=== PATIENT | female | born 1955 | race Hispanic/Latino ===

== ENCOUNTER → 2022-04-23 | Outpatient (CLI) | payer OTHER | END | disposition home or self-care (01) | LOC: SHCH 13:14 | PROVIDERS: ATTEND Internal Medicine | DX: I07.1 Rheumatic tricuspid insufficiency (principal); R94.31 Abnormal electrocardiogram [ECG] [EKG] | CPT/HCPCS: 93306 ==

== ENCOUNTER → 2022-04-29 | Outpatient (CLI) | payer OTHER ==
[~2022-04-29] MED LIST: REGADENOSON 0.4 MG/5 ML PF SYG IVP ONE
== END | disposition home or self-care (01) ==
LOC: SHCH 08:55 → EDUNIT# 09:20
PROVIDERS: ATTEND Internal Medicine
DX: R07.9 Chest pain, unspecified (principal); R94.31 Abnormal electrocardiogram [ECG] [EKG]
CPT/HCPCS: 78452; 96374; 93017; J2785; A9500 ×2

== ENCOUNTER → 2022-08-02 | Outpatient (CLI) | payer OTHER ==
[~2022-08-02] MED LIST changes: +IOHEXOL-350 75 ML VIAL IV ONE; -REGADENOSON 0.4 MG/5 ML PF SYG IVP ONE
== END | disposition home or self-care (01) ==
LOC: RAH 10:32
PROVIDERS: ATTEND Family Medicine
DX: K44.9 Diaphragmatic hernia without obstruction or gangrene (principal); Q60.0 Renal agenesis, unilateral; R93.429 Abnormal radiologic findings on diagnostic imaging of unspecified kidney; M47.815 Spondylosis without myelopathy or radiculopathy, thoracolumbar region; I70.0 Atherosclerosis of aorta
CPT/HCPCS: 74170; Q9967

== ENCOUNTER → 2024-05-17 | Outpatient (CLI) | payer OTHER ==
--- NOTE | 2024-05-17 11:53 | HMCIMG ---
Exam Type: CHEST 2VWS Clinical Information: Atherosclerosis of aorta Comparison: None Findings: The lungs are clear of infiltrates. The heart is normal in size. The bony and soft tissue structures of the chest are unremarkable. Impression: Clear lungs.
== END | disposition home or self-care (01) ==
LOC: RAH 10:25
PROVIDERS: ATTEND Family Medicine
DX: I70.0 Atherosclerosis of aorta (principal)
CPT/HCPCS: 71046

== ENCOUNTER → 2024-09-13 | Outpatient (CLI) | payer OTHER ==
--- NOTE | 2024-09-14 10:25 | HMCIMG ---
EXAM: CT Cardiac calcium scoring. CLINICAL HISTORY: Screening. TECHNIQUE: Thin collimated axial CT cardiac images were obtained. CT scan is done according to ALARA (As Low As Reasonably Achievable). CONTRAST: None. COMPARISON: None provided. FINDINGS: Calcium Score: VESSEL Number of lesions Volume mm3 Equi. Mass/mg Calcium score LM 4 15.4 - 21.6 LAD 3 34.2 - 45.9 LCX 1 5.9 - 5.2 RCA 2 5.6 - 5.7 Total 10 61.1 - 78.4 IMPRESSION: The total calcium score is 78.4. This corresponds to the 77th percentile. /[place]
== END | disposition home or self-care (01) ==
LOC: RAH 14:00
PROVIDERS: ATTEND Internal Medicine Cardiovascular Disease
DX: Z13.6 Encounter for screening for cardiovascular disorders (principal)
CPT/HCPCS: 75571